=== PATIENT | male | born 1970 | race Caucasian/White ===

== ENCOUNTER 2021-12-31 11:53 | Emergency (ER) | payer MEDICAID ==
[~2021-12-31] VITALS: Ht 177.8 cm; Wt 88.5 kg
[2021-12-31 12:05] VITALS: BP 142/76
--- NOTE | 2021-12-31 12:08 | NUR ---
PT AMBULATED TO BED 12.
[2021-12-31] MEDS ORDERED: BENZ200C4 PO (12:29)
[2021-12-31] MEDS ORDERED: PROM118S5 PO (12:29)
--- NOTE | 2021-12-31 12:41 | NUR ---
Patient discharged with v/s stable. Written and verbal after care instructions given and explained. Patient verbalized understanding. Ambulatory with steady gait. All questions addressed prior to discharge. Advised to follow up with PMD.
== END 2021-12-31 12:32 | disposition home or self-care (01) ==
LOC: MED 11:53
DX: B34.9 Viral infection, unspecified (principal); Z20.822 Contact with and (suspected) exposure to COVID-19; Z86.718 Personal history of other venous thrombosis and embolism; Z79.899 Other long term (current) drug therapy
CPT/HCPCS: 36415; 87635; 87804; 99283; C9803; U0003

== ENCOUNTER 2022-08-26 09:20 | Emergency (ER) | payer MEDICAID ==
[~2022-08-26] VITALS: Ht 177.8 cm; Wt 88.9 kg
[~2022-08-26 09:20] MED LIST: BENZ200C4 PO; PROM118S5 PO
[2022-08-26 09:23] VITALS: BP 166/99
--- NOTE | 2022-08-26 09:26 | NUR ---
AMBULATED TO BED 3
--- NOTE | 2022-08-26 09:42 | NUR ---
Pt bibs for LL back pain that started this morning. Pt has back pain chronically du eto arthritis but it is usually on his R side. Pain is constant with fluxuating severity, ache, 6/10, non radiating. No abnormalities noted. Pt a/o x 4, vss, no ss of acute distress, breathing equal and unlabored, speech celar. Pt awaiting MD.
[2022-08-26] MEDS ORDERED: ACETAMINOPHEN EXTRA STRENGTH 500 MG TAB PO ONE (10:20)
[2022-08-26] MEDS ORDERED: LIDOCAINE 5% 1 EA PATCH TP SCH (10:20)
[2022-08-26] MEDS ORDERED: ACET-10509 PO (10:22)
[2022-08-26] MEDS ORDERED: BENZ150C2 PO (10:22)
[2022-08-26] MEDS ORDERED: CYCL-711 PO (10:22)
--- NOTE | 2022-08-26 10:56 | NUR ---
ACI/Px given and reviewed with pt. Pt verbalized understanding and will follow up with primary. Pt a/o x 4, vss, no ss of acute distress, breathing equal and unlabored, speech clear, steady gait witnessed. gave order for dc.
[2022-08-26 10:58] VITALS: BP 160/93
== END 2022-08-26 10:50 | disposition home or self-care (01) ==
LOC: MED 09:20
DX: M54.50 Low back pain, unspecified (principal)
CPT/HCPCS: 99283

== ENCOUNTER 2023-05-07 09:17 | Emergency (ER) | payer MEDICAID ==
[~2023-05-07] VITALS: Ht 177.8 cm; Wt 89.8 kg
[~2023-05-07 09:17] MED LIST changes: +ACET-10509 PO; +BACL10TA4 PO; +BENZ150C2 PO; +CYCL-711 PO; +LID5T TP
[2023-05-07 09:51] VITALS: BP 150/90; PULSE 68; RESP 20; TEMP 97.7; O2SAT 98
[2023-05-07 10:40] LABS: BASOPHILS # (AUTO) 0.1 K/uL (0.00-0.22); BASOPHILS % (AUTO) 0.8 % (0.0-2.0); EOSINOPHILS # (AUTO) 0.5 K/uL (0-0.4); EOSINOPHILS % (AUTO) 7.9 % (0.0-4.0); HEMATOCRIT 48.4 % (36-52); LYMPHOCYTES # (AUTO) 1.8 K/uL (2.0-11.5); LYMPHOCYTES % (AUTO) 26.4 % (20.5-51.1); MEAN CORPUSCULAR HEMOGLOBIN 35 pg (27-31); MEAN CORPUSCULAR HGB CONC 35 g/dL (33-37); MEAN CORPUSCULAR VOLUME 98.2 fL (80-94); MONOCYTES # (AUTO) 0.5 K/uL (0.8-1.0); NEUTROPHILS # (AUTO) 3.8 K/uL (1.8-7.7); NEUTROPHILS % (AUTO) 56.9 % (42.2-75.2); PLATELET COUNT (AUTO) 199 K/uL (140-450); RED BLOOD CELL COUNT(AUTO) 4.93 MIL/uL (4.20-6.10); RED CELL DISTRIBUTION WIDTH 12.7 % (11.6-13.7); WHITE BLOOD COUNT (AUTO) 6.8 K/uL (4.8-10.8)
[2023-05-07] MEDS ORDERED: KETOROLAC 30 MG/ML VIAL IM ONE (10:40)
[2023-05-07 10:52] LABS: APPEARANCE,URINE CLEAR (CLEAR); BILIRUBIN,URINE NEGATIVE (NEGATIVE); BLOOD, URINE NEGATIVE (NEGATIVE); COLOR,URINE YELLOW (YELLOW); LEUKOCYTE ESTERASE ,URINE NEGATIVE (NEGATIVE); NITRITE, URINE NEGATIVE (NEGATIVE); PROTEIN,URINE NEGATIVE (NEGATIVE); UGLUCOSE NEGATIVE (NEGATIVE); UROBILINOGEN,URINE 0.2 EU/dL (0.2 - 1)
[2023-05-07 10:55] LABS: ALBUMIN 4.1 g/dL (3.4-5.0); ANION GAP 11.7 (8-16); CALCIUM 9.4 mg/dL (8.5-10.1); CARBON DIOXIDE 27.8 mmol/L (21-32); CREATININE 0.9 mg/dL (0.6-1.3); POTASSIUM 4.5 mmol/L (3.5-5.1); TOTAL BILIRUBIN 0.9 mg/dL (0.0-1.0)
[2023-05-07] MEDS ORDERED: KETOROLAC 30 MG/ML VIAL ONE (11:53)
[2023-05-07] MEDS ORDERED: CYCL-711 PO (12:53)
[2023-05-07] MEDS ORDERED: IBUP-2213 PO (12:53)
[2023-05-07] MEDS ORDERED: AZIT250T4 PO (12:53)
[2023-05-07] MEDS ORDERED: LID5T TP (12:53)
[2023-05-07 13:04] VITALS: BP 142/89; PULSE 68; RESP 20; TEMP 97.8; O2SAT 99
== END 2023-05-07 13:10 | disposition home or self-care (01) ==
LOC: MED 09:17
DX: S29.011A Strain of muscle and tendon of front wall of thorax, initial encounter (principal); J18.9 Pneumonia, unspecified organism; X58.XXXA Exposure to other specified factors, initial encounter; Y93.89 Activity, other specified; Y92.89 Other specified places as the place of occurrence of the external cause; Y99.8 Other external cause status
CPT/HCPCS: 36415; 71045; 80053; 81003; 83690; 85025; 93005; 96374; 99285; J1885

== ENCOUNTER 2024-03-23 09:07 | Emergency (ER) | payer MEDICAID, OTHER ==
[~2024-03-23] VITALS: Ht 177.8 cm; Wt 86.2 kg
[~2024-03-23 09:07] MED LIST changes: -ACET-10509 PO; +ACET500T99 PO; +AZIT250T4 PO; -BENZ150C2 PO; +BENZ150C7 PO; +IBUP-2213 PO
[2024-03-23 09:13] VITALS: BP 160/101; PULSE 65; RESP 17; TEMP 98.4; O2SAT 99
[2024-03-23] MEDS ORDERED: CYCL-711 PO (09:40)
[2024-03-23] MEDS: KETOROLAC 30 MG/ML VIAL IM ONE (09:52)
[2024-03-23] MEDS: LIDOCAINE 5% 1 EA PATCH TP ONE (09:52)
[2024-03-23] MEDS: ACETAMINOPHEN EXTRA STRENGTH 500 MG TAB PO ONE (09:53)
== END 2024-03-23 10:38 | disposition home or self-care (01) ==
LOC: MED 09:07
DX: G89.29 Other chronic pain (principal); M54.50 Low back pain, unspecified; Z79.899 Other long term (current) drug therapy
CPT/HCPCS: 96372; 99283; J1885